=== PATIENT | female | born 1960 | race Caucasian/White ===

== ENCOUNTER 2018-08-28 07:45 | Day surgery (SDC) | payer BC, OTHER ==
[~2018-08-28] VITALS: Ht 160 cm; Wt 68.3 kg
[2018-08-28 09:09] VITALS: Ht 160 cm; Wt 68.3 kg
[2018-08-28] MEDS ORDERED: EXCEDRIN (09:14)
[2018-08-28] MEDS ORDERED: OMEPRAZOLE (09:14)
[2018-08-28] MEDS ORDERED: LIDOCAINE 4% SOLUTION 50 ML BTL ONE (09:55)
[2018-08-28 10:03] VITALS: BP 154/74; PULSE 94; RESP 16
[2018-08-28] MEDS ORDERED: MIDAZOLAM 1 MG/ML 2 ML INJ ONE ×2 (10:52→10:53)
[2018-08-28] MEDS ORDERED: FENTAnyl 50 MCG/ML VIAL ONE (10:53)
== END 2018-08-28 12:31 | disposition home or self-care (01) ==
LOC: GIL 07:45
PROVIDERS: ATTEND Internal Medicine Gastroenterology
DX: Z12.11 Encounter for screening for malignant neoplasm of colon (principal); K64.0 First degree hemorrhoids; K57.30 Diverticulosis of large intestine without perforation or abscess without bleeding; K29.50 Unspecified chronic gastritis without bleeding
CPT/HCPCS: 43239; 45378; 88305; 88312; 88313; J2250; J3010; Z7610